=== PATIENT | female | born 1985 | race Hispanic/Latino ===

== ENCOUNTER 2017-05-10 17:54 | Inpatient (IN) | payer MEDICAID, OTHER, SELFPAY ==
[2017-05-10] MEDS ORDERED: Ondansetron HCl/PF 4 MG/2 ML Vial IVP PRN ×2 (18:29→22:21)
[2017-05-10 18:46] LABS: Hematocrit 39.8 % (36.0-47.0); Mean Platelet Volume 10.2 fL (7.4-10.4); Red Blood Cell (RBC) Count 4.25 mill/uL (4.20-5.40); White Blood Cell (WBC) Count 12.6 thou/uL (4.8-10.8)
[2017-05-10] MEDS: LR / Pitocin 40 units/1000 ml 1,000 ML IV PRN ×2 (18:58→21:36)
[2017-05-10] MEDS ORDERED: Lactated Ringer's 1,000 ML IV SCH ×2 (20:00→21:00)
[2017-05-10] MEDS ORDERED: HYDROcodone/Acetaminophen 5/325 mg Tablet PO PRN ×2 (20:00)
[2017-05-10] MEDS ORDERED: Ibuprofen 800 MG TAB PO PRN (20:00)
[2017-05-10] MEDS ORDERED: Lidocaine 1% (PF) 30 ML VIAL SC PRN (20:00)
[2017-05-10 21:55] VITALS: BMI 27.1
[2017-05-10] MEDS ORDERED: Bisacodyl 10 MG SUPP PR PRN (22:21)
[2017-05-10] MEDS ORDERED: Preparation H Ointment 28 GM TUBE PR PRN (22:21)
[2017-05-10] MEDS ORDERED: Benzocaine/Menthol 20-0.5% 60 ML CAN TOP PRN (22:21)
[2017-05-10] MEDS ORDERED: LR / Pitocin 40 units/1000 ml 1,000 ML IV SCH (22:21)
[2017-05-10] MEDS ORDERED: Lanolin Ointment 7 GM TUBE TOP PRN (22:21)
[2017-05-10] MEDS ORDERED: Adacel (T-DAP) 0.5 ML VIAL IM ONE (22:21)
[2017-05-10] MEDS ORDERED: Milk Of Magnesia 30 ML UDCUP PO PRN (22:21)
[2017-05-10] MEDS: Ibuprofen 800 MG TAB PO SCH (23:10)
[2017-05-10] MEDS: Docusate Calcium (SURFAK) 240 MG CAP PO SCH (23:10)
--- NOTE | 2017-05-11 02:06 | OP ---
DATE OF PROCEDURE: 05/10/2017 Patient delivered a male by spontaneous vaginal delivery at 38 weeks' gestation on 05/10/2017 at 1853, Apgars were 9 and 9. Weight was 3054 grams. Placenta delivered spontaneously, afterwards a Pitocin infusion was given. Estimated blood loss is [address] Faircihld is the delivering physi louis. There was a second degree laceration repaired with 2-0 chromic in the usual fashion. Mother and baby were stable in the immediate .
[2017-05-11] MEDS: Ibuprofen 800 MG TAB PO SCH ×3 (04:14→20:57)
[2017-05-11 05:45] LABS: Hematocrit 36.8 % (36.0-47.0); Mean Platelet Volume 10.5 fL (7.4-10.4); Red Blood Cell (RBC) Count 3.91 mill/uL (4.20-5.40); White Blood Cell (WBC) Count 13.2 thou/uL (4.8-10.8)
--- NOTE | 2017-05-11 08:06 | PRG ---
DATE OF SERVICE: 05/11/2017 PRIMARY OB: Dr. Efren Menon. SUBJECTIVE: The patient is a 31-year-old now day 1, status post a term spontaneous vagin al delivery last night. Her hospital course has been uncomplicated thus far. She reports that her bleeding is slowing down. She is voiding on her own, is ambulating. The patient has been unable to eat at this point due to error in the cafeteria system, which I will address with the nurse. ASSESSMENT AND PLAN: The patient is a 31-year-old female day #1 for an uncomplicated spo ntaneous vaginal delivery. Her anticipate discharge tomorrow.
[2017-05-11] MEDS ORDERED: FLU VACC QS2017-18 36 mo. & older 0.5 ML SYRINGE IM ONE (09:00)
[2017-05-11] MEDS: Prenatal Vitamin 1 TAB PO SCH (09:46)
[2017-05-11] MEDS: Docusate Calcium (SURFAK) 240 MG CAP PO SCH ×2 (09:46→20:58)
[2017-05-11] MEDS: Ferrous Sulfate 325 MG TAB PO SCH ×2 (09:47→18:21)
[2017-05-12] MEDS: Ibuprofen 800 MG TAB PO SCH (06:21)
--- NOTE | 2017-05-12 06:40 | DIS ---
PRINCIPAL DIAGNOSES: 1. Term gestation. 2. Spontaneous vaginal delivery. HOSPITAL COURSE: In brief, this is a patient who presented as a 31-year-old patient at term with sp ontaneous onset of labor. She progressed to spontaneous vaginal delivery with Dr. Fairchild franchise consultant. For full details, please turn to the note by Dr. Fairchild dated 05/10/2017 at approximately 2000. N o complications were noted with that delivery. She had a blood loss of 200 mL. She had a second de gree laceration that was repaired with 2-0 chromic. On laboratory assessment, her predelivery hematocrit value was 39, value was 36.8. Hepa titis B surface antigen and syphilis serologies were both negative on admission. I evaluated the [facility] on day of discharge being 05/12/2017 and found her clinically stable for discharge. Her tempe rature we are ranged from 98.1-98.6. Blood pressure ranged from 99/57-108/69, pulse was in the 60s- 70s. On physical exam, the uterus was firm and nontender. There was no evidence of heavy vaginal bleedin g or clinical evidence of metritis. As she was clinically stable, the decision was made to discharg e her home on the morning of 05/12/2017. A prescription was given for Motrin 600 mg 1 p.o. q.6 hour s p.r.n. pain. She was told to call for any fevers or abnormal vaginal bleeding. She was told to follow up in 4 we eks with her provider for routine care. She will follow up with Dr. Efren Menon.
[2017-05-12 08:07] VITALS: BP 104/58; TEMP 98
[2017-05-12] MEDS: Docusate Calcium (SURFAK) 240 MG CAP PO SCH (08:52)
[2017-05-12] MEDS: Prenatal Vitamin 1 TAB PO SCH (08:52)
[2017-05-12] MEDS: Ferrous Sulfate 325 MG TAB PO SCH (08:53)
--- NOTE | 2017-06-13 09:38 | HP ---
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 Menon at [facility] CHIEF COMPLAINT: Abdominal pains. HISTORY OF PRESENT ILLNESS: The patient is a 31-year-old female with an intrauterine at 38 weeks, who presented with strong uterine contractions that have been continuing throughout much of . The patient denies any leakage of fluid, has had some bloody show. Denies any chest pain, s hortness of breath, nausea, vomiting. PAST MEDICAL HISTORY: Negative. PAST SURGICAL HISTORY: Negative. SOCIAL HISTORY: Denies drug, alcohol or tobacco use. ALLERGIES: No known drug allergies. OBSTETRIC HISTORY: She has had 2 previous term vaginal deliveries. OBSTETRICAL LABORATORY DATA: Blood type is O positive, antibody screen is negative, RPR is nonreacti ve, HIV is nonreactive. Hepatitis B surface antigen is negative. She is rubella immune. GC and chl amydia were negative. One hour Glucola is 126. She is GBS negative. REVIEW OF SYSTEMS: Per HPI. PHYSICAL EXAMINATION: VITAL SIGNS: Blood pressure 137/74, heart rate is 67, temperature 98.7, respiratory rate of 20. GENERAL: She appears to be in significant distress. HEENT: Normocephalic, atraumatic. LUNGS: Clear. ABDOMEN: Gravid. CERVICAL: She is 9 cm dilated, 100%, +1 station. heart tracing, fetus noted to be in the 130s with moderate long-term variability, positive accelerations, no decelerations. Contractions are abo ut every 2-3 minutes. ASSESSMENT AND PLAN: The patient is a 31-year-old female with an intrauterine at 38 weeks in active labor. She is GBS negative. We will admit for expectant management. Anticipate delivery in the near future.
== END 2017-05-12 13:50 | disposition home or self-care (01) | DRG 775 ==
LOC: L&D/OP 17:54 → L&D 19:20 → 3SW 22:17
PROVIDERS: ADMIT Obstetrics & Gynecology; ATTEND Obstetrics & Gynecology
PROC: 10E0XZZ Delivery of Products of Conception, External Approach (ICD-10-PCS; principal; 2017-05-10)
PROC: 0KQM0ZZ Repair Perineum Muscle, Open Approach (ICD-10-PCS; 2017-05-10)
DX: O70.1 Second degree perineal laceration during delivery (principal); Z37.0 Single live birth; Z3A.38 38 weeks gestation of pregnancy
CPT/HCPCS: 36415; 85027; 86780; 87340; J2001